=== PATIENT | female | born 1950 | race Two or more races ===

== ENCOUNTER 2019-07-08 14:30 | Outpatient (CLI) | payer MEDICARE, OTHER ==
[~2019-07-08 14:30] MED LIST: APIX5TAB3 PO; FURO-149 PO; LISI2.5T2 PO; METO25TA6 PO
== END 2019-07-08 23:59 | disposition home or self-care (01) ==
LOC: RAD 14:30
DX: R13.10 Dysphagia, unspecified (principal); Z89.421 Acquired absence of other right toe(s)
CPT/HCPCS: 74230